=== PATIENT | female | born 1955 | race Caucasian/White ===

== ENCOUNTER 2017-09-22 12:31 | Day surgery (SDC) | payer OTHER ==
[~2017-09-22] VITALS: Ht 166.4 cm; Wt 52.2 kg
[2017-09-22] MEDS ORDERED: SODIUM CHLORIDE 0.9% 1,000 ML IV SCH (13:07)
[2017-09-22 13:12] VITALS: BP 113/74
[2017-09-22] MEDS ORDERED: FAMO40TA61 PO (13:12)
[2017-09-22] MEDS ORDERED: CETI10TA24 PO (13:12)
[2017-09-22] MEDS ORDERED: CEFAZOLIN PMX 1GM/50ML 50 ML ONE (13:15)
[2017-09-22] MEDS ORDERED: CEFAZOLIN PMX 1GM/50ML 50 ML IV ONE (13:30)
[2017-09-22] MEDS ORDERED: MIDAZOLAM 1 MG/ML, 5ML ONE (13:57)
[2017-09-22] MEDS ORDERED: NALOXONE 1 MG/ML, 2ML ONE (13:57)
[2017-09-22] MEDS ORDERED: FLUMAZENIL 0.1 MG/1 ML, 5ML ONE (13:57)
[2017-09-22] MEDS ORDERED: FENTANYL PF 100 MCG/2ML ONE (13:57)
[2017-09-22] MEDS ORDERED: LIDOCAINE 1%, 20ML ONE (14:15)
[2017-09-22] MEDS ORDERED: OMNIPAQUE 350 MG/ML, 100ML BOTTLE ONE (14:21)
[2017-09-22] MEDS ORDERED: LIDOCAINE 2%, 10ML ONE (14:58)
== END 2017-09-22 16:55 | disposition home or self-care (01) ==
LOC: OUT 12:31 → EDSTATUS 14:45 → OUT 16:55
PROVIDERS: ATTEND Specialist
DX: R91.8 Other nonspecific abnormal finding of lung field (principal); Z90.710 Acquired absence of both cervix and uterus; Z88.5 Allergy status to narcotic agent; Z88.8 Allergy status to other drugs, medicaments and biological substances; Z85.43 Personal history of malignant neoplasm of ovary; Z79.899 Other long term (current) drug therapy
CPT/HCPCS: 36561; 71260; 74177; 76937; 77001; 99156; 99157; C1788; C1894; J0690; J1642; J2250; J3010; J3490; J7030; Q9967; J2310